=== PATIENT | female | born 2000 | race Caucasian/White ===

== ENCOUNTER 2019-11-01 13:59 | Emergency (ER) | payer MEDICAID ==
[~2019-11-01] VITALS: Ht 160 cm; Wt 63.5 kg
[2019-11-01 14:10] VITALS: Ht 160 cm; Wt 63.5 kg
[2019-11-01 15:45] LABS: BASOPHIL % 0.3 % (0-2); RED CELL DISTRIBUTION WIDTH 14.1 % (11.5-14.5)
[2019-11-01 15:46] LABS: PLATELET COUNT 422 x10^3mcL (130-400)
[2019-11-01 15:52] LABS: CALCIUM 9.5 mg/dL (8.5-10.1); CARBON DIOXIDE 25.8 mmol/L (21-32); CHLORIDE SERUM 104 mmol/L (98-107); CREATININE SERUM 0.6 mg/dL (0.6-1.0); GFR1 > 60 mL/min; GLUCOSE SERUM 104 mg/dL (74-106); POTASSIUM SERUM 3.8 mmol/L (3.5-5.1); SODIUM SERUM 140 mmol/L (136-145)
[2019-11-01 16:01] LABS: ALBUMIN 4.3 g/dL (3.4-5.0); ALKALINE PHOSPHATASE 113 U/L (46-116); ALT/SGPT 161 U/L (14-59); AST/SGOT 102 U/L (15-37)
[2019-11-01 16:02] LABS: TOTAL PROTEIN, SERUM 8.4 g/dL (6.4-8.2)
[2019-11-01 17:55] VITALS: BP 136/79
== END 2019-11-01 17:55 | disposition home or self-care (01) ==
LOC: ED 13:59
PROVIDERS: Emergency Medicine
DX: R10.2 Pelvic and perineal pain (principal); E28.2 Polycystic ovarian syndrome
CPT/HCPCS: 36415